=== PATIENT | male | born 1955 | race Caucasian/White ===

== ENCOUNTER → 2018-06-03 18:22 | Outpatient (CLI) | payer OTHER, SELFPAY ==
--- NOTE | 2018-06-03 18:27 | DI.MRI.S_ITS ---
PROCEDURE: MR KNEE LT WO CON INDICATIONS: INJURY TO LEFT KNEE TECHNIQUE: Noncontrast sagittal PD fast spin echo and T2 fast spin echo with fat saturation, sagittal 3-D FLASH with fat saturation; coronal T1 spin echo and PD fast spin echo with fat saturation, and axial PD fast spin echo with fat saturation through the knee. COMPARISON: [facility], CR, XR KNEE 3VW LT, 11/26/2016, 15:14. FINDINGS: Image quality: Excellent. Menisci: The there is vertically oriented radial tearing of the free edge of the posterior horn medial meniscus. Posterior horn medial meniscus is detached. There is degenerative fraying of the free edges of the anterior horn, body, and posterior horn of the medial meniscus. Amorphous high signal intensity within the medial meniscal posterior horn is present, demonstrating inferior articular surface extension, indicating degenerative tearing. There is degenerative fraying of the free edges of the anterior foreign, body, and posterior horn of the lateral meniscus. Cruciate ligaments: The anterior and posterior cruciate ligaments appear intact. Medial structures: The medial collateral ligament appears intact. Visualized portions of the pes anserinus tendons appear normal. No abnormal bursal fluid. Lateral structures: The lateral collateral ligament, long and short heads of the biceps femoris tendon appear intact. The popliteus tendon appears normal. Iliotibial band appears normal. Anterior structures: The quadriceps and patellar tendons appear intact. Mild T2 signal alteration within the patellar tendon at the tibial insertion site. Patellar alignment is normal. No femoral trochlear dysplasia or ventral trochlear prominence. No edema in the infrapatellar fat pad. Bones and cartilage: No bone marrow contusions or fractures. Mild reactive marrow edema within the anterior tibial tubercle adjacent to the patellar tendon insertion site is present. There is moderate tricompartmental periarticular osteophyte formation. There is moderate articular cartilage loss diffusely overlying the medial and lateral patellar facets. Moderate articular cartilage loss overlies the weightbearing aspects of the medial femoral condyle and medial tibial plateau. Joint space: There is physiologic knee joint fluid. No Westbrook's cyst. Normal appearing synovial plicae are incidentally noted. IMPRESSION: 1. Medial meniscal tearing and detachment as described above. 2. Tricompartmental osteoarthritis with associated articular cartilage loss. 3. Mild inferior patellar tendinitis. Dictated by: Marian Mayo M.D. on 06/04/2018 at 8:33 Approved by: Marian Mayo M.D. on 06/04/2018 at 8:38
== END ==
PROVIDERS: Visit Provider Physical Medicine & Rehabilitation
DX: S89.92XA Unspecified injury of left lower leg, initial encounter (principal); M17.12 Unilateral primary osteoarthritis, left knee; M23.222 Derangement of posterior horn of medial meniscus due to old tear or injury, left knee; M23.212 Derangement of anterior horn of medial meniscus due to old tear or injury, left knee; M23.252 Derangement of posterior horn of lateral meniscus due to old tear or injury, left knee; M76.52 Patellar tendinitis, left knee
CPT/HCPCS: 73721

== ENCOUNTER → 2020-05-27 08:17 | Outpatient (CLI) | payer OTHER, SELFPAY ==
--- NOTE | 2020-05-27 | DI.US.S_ITS ---
PROCEDURE: US RENAL COMPLETE INDICATIONS: Flank pain TECHNIQUE: Real-time scanning was performed of the kidneys and bladder, with image documentation. COMPARISON: None. FINDINGS: Kidneys: Kidneys are normal in size. Right kidney measures 11.8 cm long; left kidney measures 11.1 cm long. Right renal cortical thickness is 1.7 cm; left renal cortical thickness is 2.0 cm. Renal cortical echotexture is normal. No hydronephrosis or nephrolithiasis. No suspicious solid mass lesions. The right kidney has a 1.9 x 1.6 x 1.3 centimeter simple cyst. Nonobstructive punctate calcifications are noted in both kidneys. Bladder: Pre-void bladder volume is 136 mL. Post-void residual is 79 mL. Pre-void images demonstrate no intraluminal masses or stones. On pre-void images, bilateral ureteral jets are noted with color Doppler interrogation. (Of note, ureteral jets may not be detectable in up to 25% of cases due to insufficient differences in specific gravity between ureteral and bladder urine). Miscellaneous: No free pelvic fluid. IMPRESSION: 1. No acute or significant abnormality. 2. Simple renal cyst in the right kidney. 3. Punctate calcifications in both kidneys are nonobstructive. Dictated by: Aron Hudson M.D. on 05/27/2020 at 8:56 Approved by: Aron Hudson M.D. on 05/27/2020 at 8:59
== END ==
PROVIDERS: PCP Family Medicine; Referring Provider Family Medicine; Visit Provider Family Medicine
DX: R10.9 Unspecified abdominal pain (principal)
CPT/HCPCS: 76770